=== PATIENT | male | born 1925 | race Caucasian/White ===

== ENCOUNTER 2016-09-05 11:29 | Emergency (ER) | payer MEDICARE ==
[~2016-09-05] VITALS: Ht 167.6 cm; Wt 63.5 kg
[~2016-09-05 11:29] MED LIST: ATE50T PO; CARB200T4 PO; ESTR0.753 PO
[2016-09-05] MEDS ORDERED: SODIUM BICARBONATE 8.4% INJ 50ML SYRINGE ONE (11:30)
[2016-09-05] MEDS ORDERED: NOREPINEPHRINE BITARTRATE 250 ML IV ONE (11:46)
[2016-09-05] MEDS ORDERED: MIDAZOLAM DRIP 100 mg/100mL NS 100 ML IV ONE (12:01)
[2016-09-05] MEDS ORDERED: MIDAZOLAM DRIP 100 mg/100mL NS 100 ML IV SCH (13:37)
[2016-09-05] MEDS ORDERED: NOREPINEPHRINE BITARTRATE 250 ML IV SCH (13:37)
[2016-09-05] MEDS ORDERED: SODIUM BICARBONATE 8.4% INJ 50ML SYRINGE IV ONE (15:49)
[2016-09-05] MEDS ORDERED: EPINEPHrine HCL 1 MG/10 ML SYRG IV ONE (15:49)
[2016-09-05] MEDS ORDERED: MAGNESIUM SULF 50% 40 MEQ/10 ML VL IV ONE (15:49)
== END 2016-09-05 15:10 | disposition expired ==
LOC: EDBD 11:29 → EDSEX 11:29 → ER 11:34 → EDBD 11:34 → ER 15:10
DX: R09.2 Respiratory arrest (principal); I11.0 Hypertensive heart disease with heart failure; I50.9 Heart failure, unspecified; J44.9 Chronic obstructive pulmonary disease, unspecified
CPT/HCPCS: 31500; 36600; 82805; 82962; 87070; 87205; 92950; 99291; J0171; J3475; J3490; 94002